=== PATIENT | female | born 1955 | race African-American/Black ===

== ENCOUNTER 2022-04-16 18:34 | Inpatient (IN) | payer MEDICAID, MEDICARE ==
[~2022-04-16] VITALS: Ht 175.3 cm; Wt 97.7 kg
[2022-04-16 22:52] LABS: HEMATOCRIT. 35.3 % (36.0-48.0); HEMOGLOBIN. 11.6 g/dL (12.0-16.0); MEAN CORPUSCULAR HEMOGLOBIN 30.4 pg (28.0-32.0); MEAN CORPUSCULAR VOLUME 92.8 fL (81.0-99.0); MEAN PLATELET VOLUME 9.2 fl (7.4-10.4); PLATELET 105 x1000/uL (130-400); RED CELL DISTRIBUTION WIDTH 16.2 % (11.6-14.6)
[2022-04-16 22:58] LABS: CHLORIDE 102 mEq/L (98-107)
[2022-04-16 23:05] LABS: PLATELET ESTIMATE DECREASED
[2022-04-17] MEDS ORDERED: DOCUSATE SODIUM 100MG CAPSULE PO PRN (04:15)
[2022-04-17] MEDS ORDERED: CLONIDINE 0.1MG TABLET PO PRN (04:15)
[2022-04-17] MEDS ORDERED: ONDANSETRON HCL 4MG/2ML INJ IV PRN (04:15)
[2022-04-17] MEDS ORDERED: ACETAMINOPHEN 325MG TABLET PO PRN (04:15)
[2022-04-17] MEDS ORDERED: IPRATROPIUM/ALBUTEROL 0.5-3(2.5)MG/3ML NEB HHN PRN (04:15)
[2022-04-17] MEDS ORDERED: GUAIFENESIN 200MG/10ML SUGAR FREE UDC PO PRN (04:15)
[2022-04-17] MEDS ORDERED: ZOLPIDEM TARTRATE 5MG TABLET PO PRN (04:15)
[2022-04-17] MEDS ORDERED: IPRATROPIUM BROMIDE (0.02%) 0.5MG/2.5ML NEB HHN PRN (05:00)
[2022-04-17] MEDS ORDERED: ALBUTEROL (0.083%) 2.5MG/3ML NEB HHN PRN (05:00)
[2022-04-17] MEDS ORDERED: IOHEXOL-350 100 ML BOTTLE ONE (06:53)
[2022-04-17 08:00] VITALS: BP 111/67
[2022-04-17 08:38] LABS: HEMOGLOBIN 11.1 g/dL (12.0-16.0); MEAN CORPUSCULAR HEMOGLOBIN 30.3 pg (28.0-32.0); MEAN CORPUSCULAR VOLUME 92.9 fL (81.0-99.0); PLATELET 111 x1000/uL (130-400); RED BLOOD CELL COUNT 3.65 mill/uL (4.2-5.4); RED CELL DISTRIBUTION WIDTH 16.7 % (11.6-14.6)
[2022-04-17 09:03] LABS: T4 FREE 1.03 ng/dL (0.76-1.46)
[2022-04-17] MEDS: PANTOPRAZOLE 40MG DR TABLET PO SCH (09:27)
[2022-04-17] MEDS: ENOXAPARIN 30MG/0.3ML SYR SUBCUT SCH ×2 (09:27→21:33)
[2022-04-17 09:37] LABS: VITAMIN B12 SERUM 1091 pg/mL (211-911)
[2022-04-17 10:15] LABS: FOLIC ACID (FOLATE) SERUM > 20.00 ng/mL (>5.38)
[2022-04-17 11:57] VITALS: BP 154/87
[2022-04-17 12:00] VITALS: BP 154/87
[2022-04-17 16:00] VITALS: BP 121/73
[2022-04-17 17:10] LABS: CHLORIDE 105 mEq/L (98-107)
[2022-04-17 20:00] VITALS: BP 114/63
[2022-04-18] VITALS: BP 120/77
[2022-04-18] MEDS: ACETAMINOPHEN 325MG TABLET PO PRN ×2 (03:36→09:07)
[2022-04-18 04:00] VITALS: BP 110/80
[2022-04-18 08:00] VITALS: BP 109/62
[2022-04-18] MEDS: PANTOPRAZOLE 40MG DR TABLET PO SCH (09:07)
[2022-04-18] MEDS: ENOXAPARIN 30MG/0.3ML SYR SUBCUT SCH (09:16)
[2022-04-18 12:00] VITALS: BP 114/63
[2022-04-18 16:00] VITALS: BP 127/59
[2022-04-18 19:43] VITALS: BP 133/77
[2022-04-18] MEDS ORDERED: FAMOTIDINE 20MG TABLET PO SCH (21:00)
== END 2022-04-18 21:24 | DRG 556 ==
LOC: ER 18:34 → 6EST 21:51 → EDBEDREQSVC 23:06 → EDBEDREQTM 23:06 → EDBEDREQ 23:06
PROVIDERS: ADMIT Hospitalist; ATTEND Hospitalist
DX: M79.604 Pain in right leg (principal); E46 Unspecified protein-calorie malnutrition; K80.20 Calculus of gallbladder without cholecystitis without obstruction; K76.0 Fatty (change of) liver, not elsewhere classified; D69.6 Thrombocytopenia, unspecified; F32.A Depression, unspecified; F41.9 Anxiety disorder, unspecified; F20.9 Schizophrenia, unspecified; K29.70 Gastritis, unspecified, without bleeding; D72.829 Elevated white blood cell count, unspecified; R09.02 Hypoxemia; D63.8 Anemia in other chronic diseases classified elsewhere; E78.5 Hyperlipidemia, unspecified; Z20.822 Contact with and (suspected) exposure to COVID-19; I10 Essential (primary) hypertension; K21.9 Gastro-esophageal reflux disease without esophagitis; J44.9 Chronic obstructive pulmonary disease, unspecified; Z74.01 Bed confinement status; Z79.899 Other long term (current) drug therapy; Z68.31 Body mass index [BMI] 31.0-31.9, adult
CPT/HCPCS: 36415; 71045; 71275; 80048; 80053; 80061; 82607; 82746; 83036; 83540; 83550; 83735; 83880; 84100; 84439; 84443; 84484; 85025; 85027; 87426; 87804; 93005; 93971; 99291; C9803; J1650; Q9967